=== PATIENT | male | born 1985 ===

== ENCOUNTER 2017-04-08 01:34 | Observation (INO) | payer SELFPAY ==
[2017-04-08 01:43] VITALS: TEMP 98.1
--- NOTE | 2017-04-08 01:56 | ED PDOC ---
HPI: Psych/Substance Abuse Time Seen by Provider: 04/08/17 01:38 Chief Complaint (Nursing): Alcohol Ingestion Chief Complaint (Provider): Alcohol Ingestion History/Exam Limitations: intoxication Onset/Duration Of Symptoms: Hrs Current Symptoms Are (Timing): Still Present Additional Complaint(s): Ascencion Raymond is a 31 year old male with no past medical history who presents to the ED accompanied by EMS for alcohol intoxication. Patient was found on the street. PMH and ROS is unobtainable due to intoxication. Past Medical History Reviewed: Historical Data, Nursing Documentation, Vital Signs Vital Signs: Last Vital Signs Temp 98.1 F 04/08/17 01:41 Pulse Resp BP 120/72 04/08/17 01:41 Pulse Ox - Medical History PMH: No Chronic Diseases - Surgical History Surgical History: No Surg Hx - Family History Family History: States: Unknown Family Hx - Social History Alcohol: Social - Home Medications Home Medications: Ambulatory Orders Medication Instructions Recorded Unobtainable 04/08/17 - Allergies Allergies/Adverse Reactions: Allergies Allergy/AdvReac Type Severity Reaction Status Date / Time No Known Allergies Allergy Verified 04/08/17 01:41 Review of Systems Review Of Systems: ROS cannot be obtained secondary to pt's inabilty to answer questions. (Patient ROS unobtainable due to intoxication) Physical Exam - Reviewed Nursing Documentation Reviewed: Yes Vital Signs Reviewed: Yes - Physical Exam Appears: Positive for: Well, No Acute Distress Head Exam: Positive for: ATRAUMATIC Skin: Positive for: Normal Color, Warm, Dry Eye Exam: Positive for: Normal appearance, EOMI, PERRL ENT: Positive for: Normal ENT Inspection Neck: Positive for: Normal Cardiovascular/Chest: Positive for: Regular Rate, Rhythm. Negative for: Murmur , Tachycardia Respiratory: Positive for: Normal Breath Sounds. Negative for: Wheezing, Respiratory Distress Gastrointestinal/Abdominal: Positive for: Normal Exam Male Genital Exam: Positive for: normal genitalia Back: Positive for: Normal Inspection Rectal: Positive for: Deferred Extremity: Positive for: Normal ROM Lymphatic: Positive for: Deferred Neurologic/Psych: Positive for: Gait (Unsteady), Other (Slurred speech) - Laboratory Results Result Diagrams: 04/08/17 02:05 04/08/17 02:05 Medical Decision Making Medical Decision Makin: Initial Impression: Intoxicated 31 year old male Initial Plan: * Labs * Accuchek * Re-Eval 0559: Patient awake and alert x3 with steady gait and cleared speech. Diagnosis: intoxication Scribe Attestation: Documented by John Prieto acting as a scribe for Benjamin Pittman MD. Provider Scribe Attestation: All medical record entries made by the~Quynh~were at my direction and personally dictated by me. I have reviewed the chart and agree that the record accurately reflects my personal performance of the history, physical exam, medical decision making, and the department course for this patient. I have also personally directed, reviewed, and agree with the discharge instructions and disposition. ED OBSERVATION - Observation admission statement Patient is being placed in observation because:: Pending evaluation of sobriety - Progress Note Progress Note: 04/08/17 02:34 vitals are stabled and resting comfortably. 04/08/17 03:45 vitals are stabled and resting comfortably. 04/08/17 04:55 vitals are stabled and resting comfortably. 04/08/17 05:59 Patient awake and alert x3 with steady gait and cleared speech. Diagnosis: intoxication Disposition - Clinical Impression Clinical Impression: Alcohol abuse with intoxication - Patient ED Disposition Is Patient to be Admitted: No - Disposition Disposition: Routine/Home Disposition Time: 05:55 Condition: STABLE
[2017-04-08 02:09] LABS: BASO # 0.1 K/uL (0.0-0.2); BASO % 0.8 % (0.0-2.0); EOS % 0.3 % (0.0-4.0); HEMATOCRIT 46.9 % (35.0-51.0); LYMPH # 2.3 K/uL (1.0-4.3); LYMPH % 26.7 % (20.0-40.0); MEAN CELL VOLUME 91.8 fl (80.0-94.0); MEAN CORPUSCULAR HEMOGLOBIN 31.5 pg (27.0-31.0); MEAN CORPUSCULAR HGB CONC 34.3 g/dL (33.0-37.0); MEAN PLATELET VOLUME 7.7 fl (7.2-11.7); MONO # 0.4 K/uL (0.0-0.8); MONO % 5.1 % (0.0-10.0); NEUT # 5.8 K/uL (1.8-7.0); NEUT % 67.1 % (50.0-75.0); NRBC % 0.1 % (0.0-0.0); RED CELL DISTRIBUTION WIDTH 13.6 % (11.5-14.5); WHITE BLOOD COUNT 8.7 K/uL (4.8-10.8)
[2017-04-08 02:17] LABS: ALB/GLOB RATIO 1.3 (1.0-2.1); ALKALINE PHOSPHATASE 119 U/L (38-126); ALT/SGPT 45 U/L (21-72); AST/SGOT 30 U/L (17-59); BILIRUBIN,TOTAL 0.3 mg/dl (0.2-1.3); BLOOD UREA NITROGEN 9 mg/dl (9-20); CALCIUM 9.1 mg/dL (8.4-10.2); CARBON DIOXIDE 24 mmol/L (22-30); CHLORIDE 109 mmol/L (98-107); GFR AFRICAN-AMERICAN > 60; GLUCOSE,RANDOM 126 mg/dL (75-110); POTASSIUM 4.2 MMOL/L (3.6-5.0); SODIUM 149 mmol/l (132-148); TOTAL PROTEIN 8.6 G/DL (6.3-8.2)
[2017-04-08 02:27] LABS: ALCOHOL SERUM 327 mg/dl (0-10)
[2017-04-08 04:10] VITALS: RESP 16; O2SAT 100
[2017-04-08 06:07] VITALS: BP 125/80; PULSE 85
--- NOTE | 2017-04-09 08:50 | CARD ---
APPROVED REPORT EKG Measurement Heart [id number] <Conclusion> Sinus tachycardia otherwise normal EKG
== END 2017-04-08 05:53 | disposition home or self-care (01) ==
LOC: H.ER 01:34 → H.EROBSV 02:33
PROVIDERS: ADMIT Emergency Medicine; ATTEND Emergency Medicine
DX: F10.129 Alcohol abuse with intoxication, unspecified (principal)
CPT/HCPCS: 80053; 85025; 93005; 99282; G0378; G0480